=== PATIENT | female | born 1955 | race Two or more races ===

== ENCOUNTER 2017-09-15 17:24 | Emergency (ER) | payer MEDICAID, OTHER ==
[~2017-09-15] VITALS: Ht 160 cm; Wt 67.1 kg
[2017-09-15] MEDS ORDERED: cefTRIAXone 1GM/50ML D5W 50 ML IV ONE ×2 (18:49→19:00)
[2017-09-15] MEDS ORDERED: ONDANSETRON HCL 4 MG/2 ML VIAL ONE (18:49)
[2017-09-15] MEDS ORDERED: HYDROmorphone HCL 2 MG/ML VL ONE (18:49)
[2017-09-15] MEDS ORDERED: ONDANSETRON HCL 4 MG/2 ML VIAL IV ONE ×2 (19:00→23:15)
[2017-09-15] MEDS ORDERED: HYDROmorphone HCL 2 MG/ML VL IV ONE ×2 (19:00→20:45)
[2017-09-16 01:27] VITALS: BP 119/75
[2017-09-16] MEDS ORDERED: HYDROcodone-ACET 10/325MG TAB PO ONE (01:30)
[2017-09-16] MEDS ORDERED: SODIUM CHLORIDE 0.9% 500 ML IV ONE (01:45)
[2017-09-16] MEDS ORDERED: ONDANSETRON HCL 4 MG/2 ML VIAL IV ONE (01:45)
[2017-09-16] MEDS ORDERED: HYDROmorphone HCL 2 MG/ML VL IV ONE (02:00)
== END 2017-09-16 01:46 | disposition home or self-care (01) ==
LOC: ER 17:35
DX: K04.7 Periapical abscess without sinus (principal); I10 Essential (primary) hypertension; Z90.89 Acquired absence of other organs
CPT/HCPCS: 70486; 93005; 96361; 96365; 96375; 96376; 99284; J0696; J1170; J2405; J7030